=== PATIENT | male | born 1990 | race African-American/Black ===

== ENCOUNTER 2022-08-19 08:36 | Emergency (ER) | payer SELFPAY ==
[~2022-08-19] VITALS: Ht 182.9 cm; Wt 91.0 kg
[2022-08-19 08:43] VITALS: BP 137/78
[2022-08-19] MEDS ORDERED: FLUORESCEIN SODIUM 1MG/STRIP RIGHTEYE ONE (09:30)
[2022-08-19] MEDS ORDERED: TETRACAINE 0.5% OPHTH DROPS 4ML RIGHTEYE ONE (09:30)
[2022-08-19] MEDS ORDERED: POLY10DR LEFTEYE (09:51)
== END 2022-08-19 10:08 | disposition home or self-care (01) ==
LOC: ER 08:36
DX: H10.32 Unspecified acute conjunctivitis, left eye (principal); R03.0 Elevated blood-pressure reading, without diagnosis of hypertension
CPT/HCPCS: 99283